=== PATIENT | female | born 1980 | race Hispanic/Latino ===

== ENCOUNTER 2020-01-03 02:34 | Inpatient (IN) | payer BC ==
[2020-01-03 03:19] LABS: Amnisure Test RUPTURE DETECTED (No Rupture)
[2020-01-03 03:20] VITALS: BMI 33.6
[2020-01-03 03:20] LABS: Amnisure Internal Control QC ACCEPTABLE (ACCEPTABLE)
[2020-01-03] MEDS ORDERED: Acetaminophen 500 MG TAB PO PRN (03:48)
[2020-01-03] MEDS ORDERED: Butorphanol Tartrate 1 MG/ML VIAL SLOW IVP PRN (03:48)
[2020-01-03] MEDS ORDERED: hydrALAZINE 20 MG/ML VIAL SLOW IVP PRN ×2 (03:48→09:55)
[2020-01-03] MEDS ORDERED: Promethazine HCl 25 MG/ML VIAL IM PRN ×2 (03:48→08:27)
[2020-01-03] MEDS ORDERED: Ondansetron PF 4 MG/2 ML Vial IVP PRN ×2 (03:48→08:27)
[2020-01-03] MEDS ORDERED: NS w/ Oxytocin 10 units 500 ML IV SCH ×2 (04:00)
[2020-01-03] MEDS ORDERED: Ibuprofen 800 MG TAB PO PRN (04:00)
[2020-01-03] MEDS ORDERED: NS / Oxytocin 40 units/1000ml 1,000 ML IV SCH ×2 (04:00→09:55)
[2020-01-03] MEDS: Lactated Ringer's 1,000 ML IV SCH ×2 (04:00→05:48)
[2020-01-03] MEDS ORDERED: Carboprost 250 MCG/ML AMP IM PRN (04:00)
[2020-01-03] MEDS ORDERED: Lidocaine 1% (PF) 30 ML VIAL SC PRN (04:00)
[2020-01-03 04:31] LABS: Mean Corpuscular HGB CONC 34.9 g/dL (32.0-36.0); Mean Corpuscular Hemoglobin 31.8 pg (27.0-31.0); Mean Corpuscular Volume 91.1 fL (78.0-98.0); Mean Platelet Volume 7.6 fL (7.4-10.4); Platelet Count 247 thou/uL (130-400); RBC Distribution Width 12.4 % (11.5-14.5); White Blood Cell (WBC) Count 10.1 thou/uL (4.8-10.8)
[2020-01-03 05:11] LABS: HBSAg Index 0.15 S/CO (0-0.99); Hep B Surf Ag Non-Reactive S/CO (NonReactive); Syphilis Antibody Nonreactive (Nonreactive); Syphilis Antibody Index 0.02 S/CO (<1.00 Non-Reactive)
[2020-01-03] MEDS ORDERED: Fentanyl 4 mcg/Bup 0.1% Cadd 100 ML ONE (07:18)
[2020-01-03] MEDS ORDERED: diphenhydrAMINE 50 MG/ML VIAL IVP PRN (08:27)
[2020-01-03] MEDS ORDERED: Acetaminophen 325 MG TAB PO PRN (08:27)
[2020-01-03] MEDS ORDERED: EPHEDRINE 25 MG/5 ML SYRINGE SLOW IVP PRN (08:27)
[2020-01-03] MEDS ORDERED: Lactated Ringer's 500 ML IV PRN (08:27)
[2020-01-03] MEDS ORDERED: Naloxone HCl 0.4 mg/ml Vial IVP PRN ×2 (08:27)
[2020-01-03] MEDS ORDERED: Communication Order-Pharmacy FS SCH (08:30)
[2020-01-03] MEDS ORDERED: Fentanyl 4 mcg/Bupivacaine 0.1% Cassette 100 ML EPIDURAL SCH (08:30)
--- NOTE | 2020-01-03 09:24 | PDOC.LDHP ---
Labor and Delivery H&P Chief complaint: loss of fluid (SROM at 0100 am) HPI: C/O SROM at 0100 today. Clear. Minimal contractions on arrival to L&D. Current gestational age (weeks): 37 Due date: 01/21/20 Dating criteria: first trimester ultrasound, second trimester ultrasound Grav: 2 Para: 1 OB History Details: Routine OB course. No complications. Abnormal US findings: No Current medications: pre-adry vitamins Allergies/Adverse Reactions: Allergies Allergy/AdvReac Type Severity Reaction Status Date / Time No Known Allergies Allergy Verified 01/03/20 03:15 - Physical Exam Vital signs reviewed and normal: yes General: NAD, resting Heart: RRR Lungs: CTAB Abdomen: gravid Extremeties: no edema FHT: category 1, variability present - Vaginal Exam cm dilated: 2 Effacement: 50% Station: -2 - OB Labs Blood type: O RH: positive Antibody Screen: negative HIV: negative RPR: negative HEPSAg: negative 1 hour GCT: positive (144) 3 hour GTT: 70/117/155/135 GBS: negative Urine drug screen: not done Rubella: immune - Assessment L&D Assessment: term rupture in membranes - Plan Plan: admit to L&D, informed consent obtained, anesthesia consult for pain management
[2020-01-03] MEDS ORDERED: Bupivacaine/Epinephrine 0.25% 30 ML VIAL ONE (09:25)
--- NOTE | 2020-01-03 09:31 | PDOC.OPDEL ---
OB Operative/Delivery Note Delivery Dr/Surgeon: Edwin Pre-Delivery Diagnosis: active labor Procedure/Post Delivery Dx: spontaneous vaginal delivery (Head OA, nuchal cord not reduced prior to the shoulders, shoulders and body easily followed then untangled from the cord. Vigorous cry. to mother's abdomen.) Weeks gestation: 37 Anesthesia: epidural - Findings A Sex: female - 1 min: 9 - 5 min: 9 - Additional Findings/Plan Placenta delivered: spontaneous (Intact, 3 vessel cord) Repaired Obstetrical Laceration: none Estimated blood loss: 300 Post delivery plan: routine recovery
[2020-01-03] MEDS ORDERED: Milk Of Magnesia 30 ML UDCUP PO PRN (09:55)
[2020-01-03] MEDS ORDERED: Bisacodyl 10 MG SUPP PR PRN (09:55)
[2020-01-03] MEDS ORDERED: Lanolin Ointment 7 GM TUBE TOP PRN (09:55)
[2020-01-03] MEDS ORDERED: Preparation H Ointment 28 GM TUBE PR PRN (09:55)
[2020-01-03] MEDS ORDERED: HYDROcodone/Acetaminophen 5/325 mg Tablet PO PRN (09:55)
[2020-01-03] MEDS ORDERED: Adacel (T-DAP) 0.5 ML SYRINGE IM ONE (09:55)
[2020-01-03] MEDS ORDERED: Benzocaine-Menthol 82.5 ML CAN TOP PRN (09:55)
[2020-01-03] MEDS: Ibuprofen 800 MG TAB PO SCH ×2 (14:55→21:31)
[2020-01-03] MEDS: Ferrous Sulfate 325 MG TAB PO SCH (18:21)
[2020-01-03] MEDS: Docusate Calcium (SURFAK) 240 MG CAP PO SCH (21:32)
[2020-01-04] MEDS: Ibuprofen 800 MG TAB PO SCH (05:51)
[2020-01-04 07:48] VITALS: BP 101/57; TEMP 98
--- NOTE | 2020-01-04 08:13 | PDOC.PP ---
Post Progress Note Post Day #: 1 Subjective: Doing well. No complaints. Pain controlled. Lochia normal. PO intake tolerated: yes Flatus: yes Ambulation: yes Vital Signs (12 hours) Temp Pulse Resp BP Pulse Ox 01/04/20 07:19 98 F 78 20 101/57 L 95 01/04/20 04:24 97.9 F 82 16 105/62 98 01/03/20 23:36 98.2 F 88 18 91/51 L 98 Weight Weight 215 lb - Physical Examination General: NAD Cardiovascular: no m/r/g, RRR Respiratory: clear to auscultation bilaterally, non-labored breathing Abdominal: + bowel sounds, lochia, no distention, appropriately TTP Neurological: no gross focal deficits Psychiatric: A&Ox3 Result Diagrams: 01/03/20 04:15 Additional Labs: Post Labs Blood Type O POSITIVE 01/03/20 04:15 Hep Bs Antigen Non-Reactive S/CO (NonReactive) 01/03/20 04:15 (1) Vaginal delivery Code(s): O80 - ENCOUNTER FOR FULL-TERM UNCOMPLICATED DELIVERY Status: Acute - Assessment/Plan Routine care D/C home F/U in 6 weeks
[2020-01-04] MEDS: Ferrous Sulfate 325 MG TAB PO SCH (09:21)
[2020-01-04] MEDS: Docusate Calcium (SURFAK) 240 MG CAP PO SCH (09:22)
== END 2020-01-04 12:15 | disposition home or self-care (01) | DRG 807 ==
LOC: L&D/OP 02:34 → L&D 03:40 → 3SW 14:04
PROVIDERS: ADMIT Family Medicine; ATTEND Family Medicine
PROC: 10E0XZZ Delivery of Products of Conception, External Approach (ICD-10-PCS; principal; 2020-01-03)
DX: O69.81X0 Labor and delivery complicated by cord around neck, without compression, not applicable or unspecified (principal); Z37.0 Single live birth; Z3A.37 37 weeks gestation of pregnancy
CPT/HCPCS: 36415; 51702; 84112; 85027; 86780; 86850; 86900; 86901; 87340; 90715; J2405